=== PATIENT | female | born 1960 | race Caucasian/White ===

== ENCOUNTER 2017-12-16 13:40 | Inpatient (IN) | payer OTHER ==
[~2017-12-16] VITALS: Ht 162.6 cm; Wt 96.1 kg
[~2017-12-16 13:40] MED LIST: ACETAMINOPHEN-1 EAC1; ADULT LOW DOSE81 MG PO; AMOXICILLIN875 MG PO; ASPIRIN325 PO; DIFLUCAN150 MG PO; FIORICET 50-321 EACH PO; FISH OIL 1,0001 EAC5 PO; GLUCOPHAGE500 MG PO; GLUCOTROL XL2.5 MG PO; KEPPRA XR750 MG PO; KEPPRA1000 MG PO; LEVOXYL100 MCG PO; NAPROSYN250 MG; NITROSTAT0.4 MG SL; NORCO 5-325 TA1 EACH PO; PLAVIX 75 MG TA75 MG PO; SIMVASTATIN40 MG PO; SYNTHROID88 MCG PO
[2017-12-16 13:41] VITALS: BP 154/76
[2017-12-16] MEDS ORDERED: ATORVASTATIN CA40 MG PO (13:44)
[2017-12-16 14:03] LABS: HEMATOCRIT 44.6 % (37.0-47.0); MCH 29.4 pg (26.0-34.0); MCHC 33.7 g/dL (28.0-37.0); MCV 87.3 fL (80.0-100.0); MPV 9.2 fl. (7.2-11.1); NUCLEATED RBCS 0 /100WBC; PLATELET COUNT* 368 thou/uL (150-400); RBC 5.11 mil/uL (4.20-5.00); RDW-CV 15.1 % (10.5-14.5); WBC 22.5 thou/uL (4.0-11.0)
[2017-12-16 14:09] LABS: ANION GAP 12 mmol/L (7-16); BUN 12 mg/dL (7-18); CALCIUM 9.5 mg/dL (8.5-10.1); CHLORIDE 104 mmol/L (98-107); CO2 26 mmol/L (21-32); CREATININE 0.8 mg/dL (0.6-1.3); GLUCOSE 174 mg/dL (70-99); POTASSIUM 3.1 mmol/L (3.5-5.1); SODIUM 142 mmol/L (136-145)
[2017-12-16 14:10] LABS: APTT 23.1 Seconds (25.0-31.3); INR 1.1; PROTIME 10.9 Seconds (9.20-11.50)
[2017-12-16 14:34] LABS: ABSOLUTE LYMPHOCYTES 4.3 thou/uL (0.8-5.3); ABSOLUTE MONOCYTES 0.5 thou/uL (0.0-1.2); ABSOLUTE NEUTROPHILS 17.8 thou/uL (1.6-8.1); PLATELET ESTIMATE ADEQUATE
[2017-12-16 14:42] LABS: ALBUMIN 4.2 g/dL (3.4-5.0); ALKALINE PHOSPHATASE 106 U/L (46-116); SGOT 34 U/L (15-37); SGPT 42 U/L (30-65); TOTAL BILIRUBIN 2.2 mg/dL (<0.1-1.0); TOTAL PROTEIN 7.8 g/dL (6.4-8.2); TROPONIN-I LEVEL <0.06 ng/mL (<0.06)
[2017-12-16 14:47] LABS: LIPASE > 30000 U/L (73-393)
[2017-12-16 15:18] VITALS: BP 130/72
[2017-12-16 15:30] VITALS: BP 158/85
--- NOTE | 2017-12-16 15:53 | NUR ---
REPORT GIVEN FROM ER PATIENT TRANSPORTED TO [facility] VIA CART PATIENT SETTLED IN BED VITALS SIGNS TAKEN AND STABLE HX AND ADMIT TO BE COMPLETE C/O ABDOMEN PAIN ER MEDICATED WITH MORPHINE, FENTANYL, ATIVAN, AND ZOFRAN NONE DUE TO GIVE AT THIS TIME WILL CONT TO MONITOR
[2017-12-16 20:00] VITALS: BP 167/88
[2017-12-17] VITALS: BP 160/82
[2017-12-17 04:00] VITALS: BP 151/76
[2017-12-17 04:29] LABS: HEMATOCRIT 42.7 % (37.0-47.0); HEMOGLOBIN 14.3 gm/dL (12.0-15.0); MCH 29.4 pg (26.0-34.0); MCHC 33.4 g/dL (28.0-37.0); MPV 8.9 fl. (7.2-11.1); RBC 4.85 mil/uL (4.20-5.00); RDW-CV 15.4 % (10.5-14.5); WBC 13.5 thou/uL (4.0-11.0)
--- NOTE | 2017-12-17 04:52 | NUR ---
PT CARE ASSUMED AFTER REPORT. ASSESSMENT COMPLETE. SR ON MONITOR. IVF, PROTONIX, AND KCL INFUSING. PT REQUESTING PRN PAIN MEDICATION Q2H. PT DAUGHTER UPSET THAT PRN TORADOL WAS NOT GIVEN EVEN WHEN PT HAD NOT REQUESTED IT. PT AND DAUGHTER EDUCATED THAT THE MEDICATION IS NOT SCHEDULED. IT IS ORDERED PRN. CHARGE NURSE IN ROOM AT TIME OF EDUCATION. PRN ZOFRAN GIVEN FOR NAUSEA. FALL PRECAUTIONS IN PLACE INCLUDING BED ALARM. UP WITH STB. CALL LIGHT IN REACH. BED IN LOWEST POSITION. NOT PROGRESSING TOWARDS GOALS.
[2017-12-17 05:10] LABS: ALBUMIN 3.2 g/dL (3.4-5.0); CALCIUM 7.9 mg/dL (8.5-10.1); CREATININE 0.6 mg/dL (0.6-1.3); MAGNESIUM 1.3 mg/dL (1.8-2.4); TOTAL BILIRUBIN 2.6 mg/dL (<0.1-1.0); TOTAL PROTEIN 5.7 g/dL (6.4-8.2)
[2017-12-17 05:14] LABS: POTASSIUM 4.2 mmol/L (3.5-5.1)
[2017-12-17 09:09] VITALS: BP 169/91
[2017-12-17 12:00] VITALS: BP 148/88
[2017-12-17 12:10] LABS: DIRECT BILIRUBIN 0.2 mg/dL (<0.1-0.3); TOTAL BILIRUBIN 2.7 mg/dL (<0.1-1.0)
--- NOTE | 2017-12-17 14:43 | EKG ---
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: [place] : 1960 Requested By: Huy Britton Order Number: [id number] MD: Janes Breaux Measurements Intervals Basom Rate: 69 P: 7 IL: 132 QRS: -10 QRSD: 111 T: 49 QT: 491 QTc: 526 Interpretive Statements Sinus rhythm Baseline wander in lead(s) I,II,aVR,aVF,V1,V2,V3,V4,V5,V6 Compared to ECG 04/15/2012 13:08:01 no change Electronically Signed On 12-17-2017 14:43:05 CDT by Janes Breaux [email or web address] <ELECTRONICALLY SIGNED> By: Janes Breaux MD, [facility] 12/17/17 1443 1345 1345 Janes Breaux MD, [facility] /EPI
[2017-12-17 16:00] VITALS: BP 136/70
--- NOTE | 2017-12-17 16:32 | NUR ---
PT PROGRESSING TOWARDS GOALS THIS SHIFT. PT REPORTS EFFECTIVE PAIN MANAGEMENT WITH PRN IV DILAUDID. PT REQUIRED IV ZOFRAN THIS SHIFT. IVF INFUSING. BANANA BAG STARTED. MRCP COMPLETED THIS SHIFT. MAG REPLACED THIS SHIFT. TELE SR. NO OTHER CONCERNS AT THIS TIME. CLWR. WCTM.
[2017-12-17 20:15] VITALS: BP 153/83
[2017-12-18 00:34] VITALS: BP 129/68
[2017-12-18 04:17] VITALS: BP 122/66
[2017-12-18 04:57] LABS: HEMATOCRIT 35.8 % (37.0-47.0); MCHC 34.3 g/dL (28.0-37.0); MCV 87.4 fL (80.0-100.0); MPV 8.3 fl. (7.2-11.1); RBC 4.09 mil/uL (4.20-5.00); RDW-CV 15.7 % (10.5-14.5); WBC 13.3 thou/uL (4.0-11.0)
[2017-12-18 04:58] LABS: URINE BILIRUBIN NEGATIVE (Negative); URINE BLOOD NEGATIVE (Negative); URINE CLARITY CLEAR; URINE COLOR YELLOW; URINE GLUCOSE-RANDOM TRACE (Negative); URINE KETONES NEGATIVE (Negative); URINE LEUKOCYTES-REFLEX NEGATIVE (Negative); URINE NITRITE-REFLEX NEGATIVE (Negative); URINE PROTEIN TRACE (Negative); URINE SPECIFIC GRAVITY >= 1.030 (1.005-1.030); URINE UROBILINOGEN 0.2 E.U./dl (0.2-1.0)
[2017-12-18 05:08] LABS: HEMOGLOBIN 12.3 gm/dL (12.0-15.0)
[2017-12-18 05:39] LABS: ALBUMIN 2.6 g/dL (3.4-5.0); CALCIUM 7.7 mg/dL (8.5-10.1); CREATININE 0.5 mg/dL (0.6-1.3); MAGNESIUM 1.6 mg/dL (1.8-2.4); POTASSIUM 4.2 mmol/L (3.5-5.1); TOTAL BILIRUBIN 3.4 mg/dL (<0.1-1.0)
[2017-12-18 08:30] VITALS: BP 122/65
[2017-12-18 08:39] LABS: CHOLESTEROL 86 mg/dL (<200); TRIGLYCERIDE 93 mg/dL (<150)
[2017-12-18 08:47] LABS: LIPASE 5625 U/L (73-393)
[2017-12-18 11:00] VITALS: BP 141/88
--- NOTE | 2017-12-18 12:48 | NUR ---
[facility] PT CARE AT 0730. FULL ASSESMENT DONE CHARTED, PT A/O X4, C/O ABD PAIN WITH GOOD RELIEF FROM DILAUDID, PT WAS ABLE TO START ON CLEAR LIQUIDS THIS AM, IS FEELIG VERY BLOATED THIS AFTERNOON. PTS DIET ADVANCED, SHE DOES NOT FEEL "UP TO EATING LUNCH". PROTONIX GTT RUNNING, PTS MAG WAS REPLACED, RESULTS SHOW IT IS NOW AT APPROPRIATE LEVEL. PTS SEPSIS SCREENING POSITIVE, DR CALDERON NOTIFIED. NO NEW ORDERS. PT UP AD SHIRLEY IN ROOM. ENCOURAGED TO INCREASE AMBULATION AND PROVIDEDE WITH IS TO USE. PT USES CALL LIGHT APPROPRILATY FOR NEEDS. WILL CONTINUE WITH PLAN OF CARE.
--- NOTE | 2017-12-18 13:01 | NUR ---
Pt is A&O. Resides at home with her . Independent and active. No DME. No hx of HH or SNF. Goal is to return home, no needs anticipated.
[2017-12-18 16:00] VITALS: BP 135/57
[2017-12-18 20:00] VITALS: BP 123/58
[2017-12-19] VITALS: BP 134/68
[2017-12-19 04:00] VITALS: BP 124/77
[2017-12-19 05:54] LABS: HEMATOCRIT 31.3 % (37.0-47.0); HEMOGLOBIN 11.2 gm/dL (12.0-15.0); MCH 30.6 pg (26.0-34.0); MCHC 35.7 g/dL (28.0-37.0); MCV 85.6 fL (80.0-100.0); MPV 8.5 fl. (7.2-11.1); RBC 3.66 mil/uL (4.20-5.00); RDW-CV 15.6 % (10.5-14.5)
[2017-12-19 06:06] LABS: ALBUMIN 2.3 g/dL (3.4-5.0); CALCIUM 7.9 mg/dL (8.5-10.1); CREATININE 0.5 mg/dL (0.6-1.3); MAGNESIUM 1.7 mg/dL (1.8-2.4); POTASSIUM 3.3 mmol/L (3.5-5.1); TOTAL BILIRUBIN 3.5 mg/dL (<0.1-1.0); TOTAL PROTEIN 5.6 g/dL (6.4-8.2)
--- NOTE | 2017-12-19 07:51 | NUR ---
PATIENT NOT PROGRESSING TOWARDS GOALS: PATIENT'S PAIN IMPROVED FOR A SHORT TIME AFTER ADMINSTRATION OF DILAUDID BUT PATIENT CONTINUES TO REQUIRE PAIN MEDICATION FREQUENTLY. PATIENT AGREES WITH PLAN TO ATTEMPT TRANSITION TO ORAL PAIN MEDICATION TODAY. PATIENT ALSO NAUSEATED THROUGHOUT SHIFT AND UNABLE TO TOLERATE MUCH LIQUID. ZOFRAN ADMINISTERED WITH PARTIAL RELIEF OF NAUSEA. PATIENT UNABLE TO HAVE A BOWEL MOVEMENT, DESPITE EFFORTS TO INCREASE ACTIVITY. PATIENT STATES SHE FEELS "BLOATED". REPORT GIVEN TO ONCOMING RN AND PATIENTS GOALS DISCUSSED WITH DAY RN DURING BEDSIDE REPORT.
[2017-12-19 08:00] VITALS: BP 136/79
[2017-12-19 11:30] VITALS: BP 126/69
[2017-12-19 14:09] LABS: HEPATITIS B SURFACE AG Negative (Negative)
[2017-12-19 17:25] VITALS: BP 140/86
--- NOTE | 2017-12-19 18:53 | NUR ---
[facility] PT CARE AT 0730, FULL ASSESMENT DONE CHARTED. PT A/O X4, C/O ABDOMINAL PAIN. PT ABLE TO EAT SOME FULL LIQUIDS FOR BREAKFAST, IS TOLERATING FOOD BETTER TODAY, SHE IS PROGRESSING TOWARD HER GOALS. PAIN BETTER CONTROLLED TODAY. POTASSIUM AND MAGNESIUM REPLACED TODAY, PT IS VERY HARD IV STICK, SHE REFUSED TO HAVE LABS RECHECKED THIS AFTERNOON AFTER BEING STUCK MULTIPLE TIMES FOR A SECOND IV. PT UP AD SHIRLEY IN ROOM, VSS, SR ON THE MONITOR BUT MADE M/S STATUS THIS AFTERNOON. PT EDUCATED ON LABS AND UPDATED ON PLAN OF CARE.
[2017-12-19 20:12] VITALS: BP 122/69; BP 144/84
[2017-12-20 04:34] LABS: HEMATOCRIT 28.9 % (37.0-47.0); HEMOGLOBIN 10.4 gm/dL (12.0-15.0); MCH 30.2 pg (26.0-34.0); MCV 83.7 fL (80.0-100.0); MPV 8.2 fl. (7.2-11.1); RBC 3.45 mil/uL (4.20-5.00); RDW-CV 15.4 % (10.5-14.5); WBC 8.4 thou/uL (4.0-11.0)
[2017-12-20 04:42] LABS: ALBUMIN 2.2 g/dL (3.4-5.0); CALCIUM 7.8 mg/dL (8.5-10.1); CREATININE 0.4 mg/dL (0.6-1.3); MAGNESIUM 1.6 mg/dL (1.8-2.4); POTASSIUM 3.6 mmol/L (3.5-5.1); TOTAL BILIRUBIN 2.9 mg/dL (<0.1-1.0); TOTAL PROTEIN 5.6 g/dL (6.4-8.2)
--- NOTE | 2017-12-20 06:04 | NUR ---
PATIENT WAS A TRANSFER FROM [facility] ABOUT 2200. ASSESSMENT AND MEDS WERE GIVEN CHARTED. PATIENT WAS GIVEN PAIN MEDS ABOUT EVERY 2-3 HOURS AND WAS GIVEN NAUSEA MEDICINE TWICE THIS SHIFT. PATIENT IS HOPING TO GO HOME TODAY. WILL CONTINUE TO MONITOR.
[2017-12-20 07:55] VITALS: BP 135/75
[2017-12-20 17:15] VITALS: BP 139/76
--- NOTE | 2017-12-20 18:59 | NUR ---
PATIENT RESTING IN BED. PATIENT IS UP AD SHIRLEY IN ROOM. PATIENT HAS COMPLAINTS OF ABDOMINAL PAIN, TREEATED ADEQUATELY WITH PAIN MEDICATION. PATIENT IS TOLERATING REGULAR DIET BUT DOES HAVE NAUSEA AFTER MEALS TREATED ADEQAUTELY WITH ZOFRAN, NO VOIMITING. PATIENT DENIES ANY NEEDS AT THIS TIME. CALL LIGHT WITHIN REACH. WILL CONTINUE TO MONITOR.
[2017-12-21 00:39] VITALS: BP 152/77
--- NOTE | 2017-12-21 05:52 | NUR ---
PATIENT SLEPT PART OF THE NIGHT. NEW IV WAS STARTED CHARTED. PATIENT DRANK HALF BOTTLE OF MAG CITRATE AND SUPPOSITORY WAS GIVEN STILL NO BOWEL MOVEMENT BUT PATIENT IS PASSING FLATUS. PAIN AND NASUEA MEDS WERE GIVEN NEEDED. PATIENT IS POSSIBLY GOING HOME TODAY. WILL CONTINUE TO MONITOR.
[2017-12-21 07:40] VITALS: BP 142/85
[2017-12-21 14:15] VITALS: BP 142/85
[2017-12-21] MEDS ORDERED: ONDANSETRON HCL4 M2 PO ×2 (14:36→14:49)
[2017-12-21] MEDS ORDERED: HYDROCODON-ACE1 EAC7 PO ×2 (14:36→14:48)
[2017-12-21 16:50] VITALS: BP 110/80
--- NOTE | 2017-12-21 19:34 | NUR ---
PATIENT RESTING IN BED. PATIENT UP AD SHIRLEY IN ROOM AND HAS BEEN UP WALKING IN HALLS. PATIENT IS TOLERATING DIET BUT DOES HAVE COMPLAINTS OF ABDOMINAL PAIN AND NAUSEA, TREATED ADEQUATELY WITH MEDICATION. PATIENT HAS NOT HAD BOWEL MOVEMENT AT THIS TIME, SUPPOSITORY GIVEN ORDERED. PATIENT DENIES ANY NEEDS AT THIS TIME. CALL LIGHT WITHIN REACH. WILL CONTINUE TO MONITOR.
[2017-12-21 21:37] VITALS: BP 156/88
--- NOTE | 2017-12-22 00:54 | NUR ---
ASSUMED PT CARE AT 1930. ASSESSMENT COMPLETED CHARTED. PT C/O ABD PAIN SINCE ADMIT, GIVEN PRN PAIN MEDICATION DIRECTED. GAVE ENEMA X1 TO HELP PT HAVE SMALL BM WITH A LARGE AMOUNT OF OIL IN STOOL. ABLE TO MAKE NEEDS KNOWN. POSSIBLE DC TODAY. WILL CONTINUE TO MONITOR.
[2017-12-22 07:33] VITALS: BP 128/78
[2017-12-22 08:00] VITALS: BP 142/85
--- NOTE | 2017-12-22 13:32 | NUR ---
ASSUMED CARE THIS AM. A/O, DENIES NEEDS, UP AD SHIRLEY, SHOWERED INDEPENDENTLY. DISCHARGE ORDERS RECEIVED, IV ACCESS REMOVED WITHOUT DIFFICULTY. DISCHARGE ORDERS, FOLLOW UP APPOINTMENTS, PRESCRIPTIONS DISCUSSED WITH AND GIVEN TO PATIENT, DENIES QUESTIONS AT THIS TTIME. PERSONAL EFFECTS GATHERED, ACCOUNTED FOR, IN COMPANY OF TO PROVIDE TRANSPORTATION, PATIENT TRANSPORTED TO MAIN ENTRANCE VIA WHEELCHAIR IN STABLE CONDITION.
--- NOTE | 2017-12-24 09:59 | CON ---
[address] [address] CONSULTATION Name: NANDABRETT FUN Room: [address] IN M.R.#: [id number] Admission: 12/16/17 Attend Phys: Tyrese Lowe, Discharge: 12/22/17 Date of : 62 Report #: [id number] THIS REPORT FOR: //name// CC: CHARLIE physician/PCP Tyrese Lowe DATE OF SERVICE: 12/17/2017 REASON FOR CONSULT: Epigastric pain and pancreatitis. HISTORY OF PRESENT ILLNESS: This is a 57-year-old female who reports that she never had such a severe pain in her life. She reports that her pain started yesterday as she was shopping in the mall. The pain was so severe that made her pass out. She reports that when she got home from shopping center, she started having persistent nausea and vomiting as the pain was getting worse. This prompted her to come to hospital. The patient reports that she had a colonoscopy in [facility] about 3 weeks ago. Post-colonoscopy she had severe back pain. The MRI of the back revealed 2 bulging disks. She also could not urinate, and they placed a Morales catheter. The patient reports that after placement of Morales, she had urinary tract infection, for which she had received few different antibiotics. She currently is lying down, requiring pain medication, fentanyl, but reports that this is not cutting down her pain. She denies any nausea and vomiting and IV fluids at rate of 200 mL per hour had been started. PAST MEDICAL HISTORY: Significant for history of hypothyroidism, migraine, dyslipidemia, diabetes mellitus, CVA, C-sections, colon polyps with recent colonoscopy, urinary tract infection. A trial of different antibiotics. ALLERGIES: SIGNIFICANT TO IODINE AND TOPIRAMATE. THE PATIENT IS ALSO ALLERGIC TO CHOCOLATE AND LATEX. MEDICATIONS: Please refer to hospital MAR. SOCIAL HISTORY: The patient may occasionally have alcoholic beverage, but denies tobaccoism. She lives at home with her . FAMILY HISTORY: Negative for GI malignancy. PHYSICAL EXAMINATION: VITAL SIGNS: Reveal blood pressure of 169/91, respirations 18, pulse 92, temperature 98.2. LUNGS: Clear. CARDIOVASCULAR: [place] [address] CONSULTATION Name: BRETT VEE Room: [address]#: [id number] Admission: 12/16/17 Attend Phys: Tyrese Lowe, Discharge: 12/22/17 Date of : 62 Report #: [id number] ABDOMEN: Soft, tender to palpation in the epigastric region. Bowel sounds are positive, but hypoactive. NEUROLOGIC: The patient is alert, oriented x 3. LABORATORY DATA: Reveals sodium of 138, potassium 4.2, BUN is 15, creatinine 0.6, glucose 246, AST 18, ALT 28, with alkaline phosphatase of 75, total bilirubin is 2.6, with lipase of 8500, down from more than 30,000 yesterday. Albumin is 3.2. WBC is 13.5, with hemoglobin of 14.3, platelet is 230. IMAGING: CT of abdomen and pelvis was obtained. This was significant for severe acute pancreatitis. There is some peripancreatic fluid, which was not loculated. There is also evidence of cholelithiasis with some gallbladder distention. The patient also has trace amount of perihepatic ascites and hepatosplenomegaly. ASSESSMENT AND PLAN: The patient with acute pancreatitis, which may be due to recent trial of different antibiotics. She also has gallstones and may have gallstone pancreatitis. This is somewhat unlikely as liver enzymes are all within normal limits. Note that bilirubin is mildly elevated. We will await MRCP results to make further recommendations. Meanwhile, we will change her pain medication to Dilaudid as she does not think that fentanyl is relieving her pain. We will continue to follow up with her lipase. I would keep her n.p.o. for now. <ELECTRONICALLY SIGNED> By: Fabi Giron MD 12/24/17 0959 0949 [id number] Giron MD /nt
== END 2017-12-22 13:36 | disposition home or self-care (01) | DRG 439 ==
LOC: M.ERS 13:40 → M.2W 14:54 → M.TBA-ER 14:54 → M.3W 14:54 → M.2W 15:25 → M.3W 12-19 22:03
PROVIDERS: Family Medicine; Internal Medicine; Internal Medicine Gastroenterology; Surgery; ADMIT Family Medicine
DX: K85.10 Biliary acute pancreatitis without necrosis or infection (principal); R65.10 Systemic inflammatory response syndrome (SIRS) of non-infectious origin without acute organ dysfunction; E44.1 Mild protein-calorie malnutrition; E87.2 Acidosis; E78.5 Hyperlipidemia, unspecified; I51.81 Takotsubo syndrome; G43.909 Migraine, unspecified, not intractable, without status migrainosus; E78.00 Pure hypercholesterolemia, unspecified; K59.00 Constipation, unspecified; E87.6 Hypokalemia; E11.9 Type 2 diabetes mellitus without complications; E03.9 Hypothyroidism, unspecified; Z68.36 Body mass index [BMI] 36.0-36.9, adult; Z86.73 Personal history of transient ischemic attack (TIA), and cerebral infarction without residual deficits; Z88.8 Allergy status to other drugs, medicaments and biological substances; Z91.041 Radiographic dye allergy status; Z91.040 Latex allergy status; Z91.011 Allergy to milk products; Z98.890 Other specified postprocedural states; Z79.2 Long term (current) use of antibiotics; Z79.899 Other long term (current) drug therapy; Z82.5 Family history of asthma and other chronic lower respiratory diseases